=== PATIENT | female | born 1965 | race Caucasian/White ===

== ENCOUNTER → 2019-10-19 | Outpatient (CLI) | payer BC | END | disposition home or self-care (01) | LOC: COVID19 00:20 | DX: Z20.828 Contact with and (suspected) exposure to other viral communicable diseases (principal) ==

== ENCOUNTER 2023-07-20 13:57 | Emergency (ER) | payer MEDICAID ==
[~2023-07-20] VITALS: Ht 160 cm; Wt 77.1 kg
[2023-07-20 14:47] VITALS: BP 120/65
[2023-07-20] MEDS ORDERED: Bacitracin Zinc 14 GM TUBE T ONE (15:15)
[2023-07-20] MEDS ORDERED: Lidocaine Hydrochloride 2% 5 ML SDV SC ONE (15:15)
[2023-07-20] MEDS ORDERED: Tdap Vaccine 0.5 ML SYR (Adult Vaccine) IM ONE (16:20)
[2023-07-20] MEDS ORDERED: CEPHALEXIN500 M1 PO (16:27)
== END 2023-07-20 18:00 | disposition home or self-care (01) ==
LOC: ED 13:57
DX: S61.210A Laceration without foreign body of right index finger without damage to nail, initial encounter (principal); Z98.890 Other specified postprocedural states; X58.XXXA Exposure to other specified factors, initial encounter; Y93.89 Activity, other specified; Y92.89 Other specified places as the place of occurrence of the external cause; Y99.8 Other external cause status

== ENCOUNTER 2023-07-22 14:40 | Emergency (ER) | payer MEDICAID ==
[~2023-07-22] VITALS: Wt 77.1 kg
[~2023-07-22 14:40] MED LIST: CEPHALEXIN500 M1 PO
[2023-07-22 15:18] VITALS: BP 148/82
== END 2023-07-22 15:36 | disposition home or self-care (01) ==
LOC: ED 14:40
DX: S60.450A Superficial foreign body of right index finger, initial encounter (principal); Z98.890 Other specified postprocedural states; X58.XXXA Exposure to other specified factors, initial encounter; Y93.89 Activity, other specified; Y92.89 Other specified places as the place of occurrence of the external cause; Y99.8 Other external cause status